=== PATIENT | female | born 2000 ===

== ENCOUNTER 2020-07-20 19:05 | Inpatient (IN) | payer OTHER ==
--- NOTE | 2020-07-20 21:03 | Ultrasound Report ---
ULTRASOUND OBSTETRIC LIMITED INDICATION / CLINICAL INFORMATION: ROM. Clinical Gestational Age (GA): 35 weeks 1 days COMPARISON: None available. FINDINGS: HEART RATE (beats per minute): 153 PRESENTATION: Cephalic. ADDITIONAL FINDINGS: None. IMPRESSION: 1. Cephalic presentation. Signer Name: Tommie Borges MD Signed: 07/20/2020 8:59 PM Workstation Name: [id number]
[2020-07-20] MEDS ORDERED: AMPICILLIN/NS 2 GM/100 ML 2 GM/100 ML BAG IV ONE ×2 (21:06→21:15)
[2020-07-20] MEDS ORDERED: LACTATED RINGERS 1,000 ML ONE (21:15)
[2020-07-20] MEDS ORDERED: BETAMET ACET/BETAMET NA PH 6 MG/ML INJ 5 ML MDV IM ONE (21:15)
[2020-07-20] MEDS: BETAMET ACET/BETAMET NA PH 6 MG/ML INJ 5 ML MDV IM SCH (21:52)
[2020-07-20 21:58] LABS: Basophils # (Auto) 0.1 K/mm3 (0.0-0.1); Basophils % (Auto) 0.4 % (0.0-1.8); Eosinophils % (Auto) 0.3 % (0.0-4.3); Hematocrit 32.9 % (30.3-42.9); Hemoglobin 11.1 gm/dl (10.1-14.3); Lymphocytes # (Auto) 2.3 K/mm3 (1.2-5.4); Lymphocytes % (Auto) 19.7 % (13.4-35.0); Mean Corpuscular HGB Conc 34 % (30-34); Mean Corpuscular Volume 93 fl (79-97); Monocytes # (Auto) 0.8 K/mm3 (0.0-0.8); Monocytes % (Auto) 6.6 % (0.0-7.3); Platelet Count 162 K/mm3 (140-440); Red Blood Count 3.55 M/mm3 (3.65-5.03)
[2020-07-20] MEDS ORDERED: OXYTOCIN DRIP 30,000 MILLIUNITS/500 ML BAG IV ONE (22:50)
[2020-07-20] MEDS: BUTORPHANOL 2 MG/1 ML INJ IV PRN (23:03)
--- NOTE | 2020-07-21 00:09 | History and Physical Report ---
History of Present Illness Date of examination: 07/20/20 Date of admission: 07/20/20 Chief complaint: Pt states her water broke at 2am on 07/19/20. She states she was seen at [facility] and was sent home. History of present illness: 20 y/o at 35.1 wks presents with c/o SROM since 2am on 07/19/20. Pt states she was seen at [facility] on 07/19/20 for same and was sent home. She states she initiated her pnc at [facility] and had an u neventful preg. PN records are not available. GBS is unknown. Pt was admitted for an induction after consulting with Dr Vieira. Past History Past Medical History: no pertinent history Past Surgical History: no surgical history - Obstetrical History Expected Date of Delivery: 08/23/20 Actual Gestation: 35 Week(s) 2 Day(s) : 1 Para: 0 Medications and Allergies Allergies Allergy/AdvReac Type Severity Reaction Status Date / Time No Known Allergies Allergy Unverified 07/20/20 19:42 Home Medications Medication Instructions Recorded Confirmed Last Taken Type Vitamin 1 tab PO QDAY 07/20/20 07/20/20 07/20/20 10:00 History Active Meds: Active Medications Betamethasone Acet/Betameth SodPhos (Celestone Soluspan) 12 mg IM Q24H DELICIA Stop: 07/21/20 21:06 Last Admin: 07/20/20 21:52 Dose: 12 mg Documented by: Butorphanol Tartrate (Stadol) 2 mg IV Q2H PRN PRN Reason: Labor Pain Last Admin: 07/20/20 23:03 Dose: 2 mg Documented by: Lactated Ringer's (Lactated Ringers) 1,000 mls @ 125 mls/hr IV DIRECT DELICIA Ampicillin Sodium (Ampicillin/Ns 1 Gm/50 Ml) 1 gm in 50 mls @ 100 mls/hr IV Q4HR DELICIA; Protocol Review of Systems All systems: negative Eyes: deferred Ears, nose, mouth and throat: deferred Breasts: normal - Vital Signs Vital signs: Vital Signs Temp 98.4 F 07/20/20 19:30 Temp Pulse Resp BP Pulse Ox 98.4 F 89 98 07/20/20 19:30 07/20/20 23:57 07/20/20 23:57 - Physical Exam Breasts: Positive: normal Cardiovascular: Regular rate Lungs: Positive: Clear to auscultation, Normal air movement Abdomen: Positive: normal appearance, soft, normal bowel sounds, other (gravid) Genitourinary (Female): Positive: normal external genitalia, normal perenium Vulva: both: normal Uterus: Positive: normal size, enlarged, normal contour, other (gravid) Adnexa: both: normal Anus/Rectum: Positive: normal perianal skin Extremities: Positive: normal - Obstetrical FHR: auscultation normal, category 1 Uterine Contraction Monitor Mode: External Cervical Dilatation: 1 (per nurse) Cervical Effacement Percentage: 30 (per nurse) station: -3 Uterine Contraction Pattern: Regular Uterine Tone Measurement Phase: Resting Uterine Contraction Intensity: Mild Results Result Diagrams: 07/20/20 20:34 Abnormal lab results 07/20/20 Range/Units 20:34 WBC 11.8 H (4.5-11.0) K/mm3 RBC 3.55 L (3.65-5.03) M/mm3 RDW 13.0 L (13.2-15.2) % Seg Neutrophils % 73.0 H (40.0-70.0) % Seg Neutrophils # 8.6 H (1.8-7.7) K/mm3 All other labs normal. Assessment and Plan A: IUP @ 35.1 wks PPROM on 07/19/20 @ 2am PTL, GBS unknown P: Admit to L&D Continuous monitoring Betamethasone Pain med/Epidural prn GBS prophylaxis per hosp protocal Expectant mtg POC agrees with plan - Patient Problems (1) 35 weeks gestation of Current Visit: Yes Status: Acute (2) premature rupture of membranes (PPROM) with onset of labor after 24 hours of rupture in third trimester, antepartum Current Visit: Yes Status: Acute
[2020-07-21] MEDS ORDERED: fentaNYL 100 MCG/2 ML INJ IV PRN (01:57)
[2020-07-21] MEDS ORDERED: LIDOCAINE (2%) 20 MG/1 ML VIAL 20 ML MDV INFILTRATI ONE (01:57)
[2020-07-21] MEDS ORDERED: MINERAL OIL 30 ML ORAL LIQD PO PRN (01:57)
[2020-07-21] MEDS ORDERED: TERBUTALINE 1 MG/1 ML INJ SUB-Q PRN (01:57)
[2020-07-21] MEDS ORDERED: OXYTOCIN DRIP 30 UNITS/500 ML BAG IV SCH ×2 (02:00→23:45)
[2020-07-21] MEDS: AMPICILLIN/NS 1 GM/50 ML 1 GM/50 ML BAG IV SCH ×4 (02:17→20:40)
[2020-07-21] MEDS: LACTATED RINGERS 1,000 ML IV SCH ×2 (08:46→20:40)
[2020-07-21] MEDS: BUTORPHANOL 2 MG/1 ML INJ IV PRN (08:53)
--- NOTE | 2020-07-21 10:37 | Progress Note ---
Assessment and Plan - Patient Problems (1) premature rupture of membranes (PPROM) with unknown onset of labor Current Visit: Yes Status: Acute Plan to address problem: Continue IV Abts Initiate Pitocin titration after second dose of steroids received Anticipate Subjective - Subjective Date of service: 07/21/20 Principal diagnosis: PPROM Interval history: See admission H & P Patient reports: loss of fluid, movement normal, contractions (irregular), no new complaints, no vaginal bleeding Objective - Vital Signs Vital Signs: Vital Signs - 12hr 07/20/20 07/20/20 07/20/20 23:32 23:37 23:42 Temperature Pulse Rate 90 78 96 H Respiratory Rate Blood Pressure O2 Sat by Pulse 97 96 98 Oximetry 07/20/20 07/20/20 07/20/20 23:47 23:52 23:57 Temperature Pulse Rate 81 79 89 Respiratory Rate Blood Pressure O2 Sat by Pulse 98 98 98 Oximetry 07/21/20 07/21/20 07/21/20 00:02 00:07 00:12 Temperature Pulse Rate 78 84 96 H Respiratory Rate Blood Pressure O2 Sat by Pulse 98 99 99 Oximetry 07/21/20 07/21/20 07/21/20 00:17 00:22 00:27 Temperature Pulse Rate 92 H 84 83 Respiratory Rate Blood Pressure O2 Sat by Pulse 98 100 99 Oximetry 07/21/20 07/21/20 07/21/20 00:32 00:37 00:42 Temperature Pulse Rate 70 72 74 Respiratory Rate Blood Pressure O2 Sat by Pulse 97 97 97 Oximetry 07/21/20 07/21/20 07/21/20 00:49 00:54 00:59 Temperature Pulse Rate 77 70 77 Respiratory Rate Blood Pressure O2 Sat by Pulse 98 97 97 Oximetry 07/21/20 07/21/20 07/21/20 01:04 01:09 01:10 Temperature Pulse Rate 75 83 87 Respiratory Rate Blood Pressure O2 Sat by Pulse 98 96 88 Oximetry 07/21/20 07/21/20 07/21/20 01:14 01:19 01:24 Temperature Pulse Rate 78 78 82 Respiratory Rate Blood Pressure O2 Sat by Pulse 97 96 97 Oximetry 07/21/20 07/21/20 07/21/20 01:29 01:34 01:39 Temperature Pulse Rate 82 89 83 Respiratory Rate Blood Pressure O2 Sat by Pulse 96 97 98 Oximetry 07/21/20 07/21/20 07/21/20 01:44 01:49 01:54 Temperature Pulse Rate 81 90 84 Respiratory Rate Blood Pressure O2 Sat by Pulse 97 98 96 Oximetry 07/21/20 07/21/20 07/21/20 01:59 02:04 02:09 Temperature Pulse Rate 74 74 74 Respiratory Rate Blood Pressure O2 Sat by Pulse 96 97 97 Oximetry 07/21/20 07/21/20 07/21/20 02:14 02:19 02:21 Temperature Pulse Rate 76 79 75 Respiratory Rate Blood Pressure 105/62 O2 Sat by Pulse 97 97 Oximetry 07/21/20 07/21/20 07/21/20 02:24 02:36 03:27 Temperature 99.4 F Pulse Rate 81 72 Respiratory Rate Blood Pressure 110/64 O2 Sat by Pulse 97 Oximetry 07/21/20 07/21/20 07/21/20 04:25 04:30 04:35 Temperature Pulse Rate 77 74 73 Respiratory Rate Blood Pressure O2 Sat by Pulse 98 98 98 Oximetry 07/21/20 07/21/20 07/21/20 04:40 04:45 04:50 Temperature Pulse Rate 78 81 86 Respiratory Rate Blood Pressure O2 Sat by Pulse 97 98 97 Oximetry 07/21/20 07/21/20 07/21/20 04:55 05:00 05:05 Temperature Pulse Rate 74 72 92 H Respiratory Rate Blood Pressure O2 Sat by Pulse 97 97 97 Oximetry 07/21/20 07/21/20 07/21/20 05:10 05:15 05:20 Temperature Pulse Rate 74 83 81 Respiratory Rate Blood Pressure O2 Sat by Pulse 97 97 98 Oximetry 07/21/20 07/21/20 07/21/20 05:22 05:25 05:30 Temperature 99.4 F Pulse Rate 72 74 Respiratory Rate Blood Pressure O2 Sat by Pulse 98 98 Oximetry 07/21/20 07/21/20 07/21/20 05:35 05:40 05:45 Temperature Pulse Rate 76 66 77 Respiratory Rate Blood Pressure O2 Sat by Pulse 97 97 97 Oximetry 07/21/20 07/21/20 07/21/20 05:50 05:55 06:00 Temperature Pulse Rate 66 78 69 Respiratory Rate Blood Pressure O2 Sat by Pulse 97 97 97 Oximetry 07/21/20 07/21/20 07/21/20 06:05 06:14 06:19 Temperature Pulse Rate 81 69 68 Respiratory Rate Blood Pressure O2 Sat by Pulse 98 97 97 Oximetry 07/21/20 07/21/20 07/21/20 06:24 06:29 06:34 Temperature Pulse Rate 90 71 77 Respiratory Rate Blood Pressure O2 Sat by Pulse 98 97 97 Oximetry 07/21/20 07/21/20 07/21/20 06:39 06:45 06:50 Temperature Pulse Rate 70 76 Respiratory Rate Blood Pressure O2 Sat by Pulse 97 100 97 Oximetry 07/21/20 07/21/20 07/21/20 06:55 07:00 07:08 Temperature Pulse Rate 75 78 Respiratory Rate Blood Pressure O2 Sat by Pulse 97 97 99 Oximetry 07/21/20 07/21/20 07/21/20 07:13 07:18 07:23 Temperature Pulse Rate 71 83 67 Respiratory Rate Blood Pressure O2 Sat by Pulse 98 97 97 Oximetry 07/21/20 07/21/20 07/21/20 07:28 07:33 07:38 Temperature Pulse Rate 72 74 81 Respiratory Rate Blood Pressure O2 Sat by Pulse 98 98 98 Oximetry 07/21/20 07/21/20 07/21/20 07:43 07:48 07:53 Temperature Pulse Rate 76 81 80 Respiratory Rate Blood Pressure O2 Sat by Pulse 97 95 95 Oximetry 07/21/20 07/21/20 07/21/20 07:58 08:03 08:08 Temperature Pulse Rate 75 85 94 H Respiratory Rate Blood Pressure O2 Sat by Pulse 97 96 97 Oximetry 07/21/20 07/21/20 07/21/20 08:13 08:18 08:23 Temperature Pulse Rate 89 86 70 Respiratory Rate Blood Pressure O2 Sat by Pulse 96 98 97 Oximetry 07/21/20 07/21/20 07/21/20 08:28 08:34 08:46 Temperature Pulse Rate 81 74 63 Respiratory Rate Blood Pressure 126/70 O2 Sat by Pulse 98 98 Oximetry 07/21/20 07/21/20 07/21/20 08:59 09:08 09:13 Temperature 98.0 F Pulse Rate 78 104 H Respiratory 17 Rate Blood Pressure O2 Sat by Pulse 96 97 Oximetry 07/21/20 07/21/20 07/21/20 09:18 09:23 09:28 Temperature Pulse Rate 66 78 69 Respiratory Rate Blood Pressure O2 Sat by Pulse 97 98 98 Oximetry 07/21/20 07/21/20 07/21/20 09:33 09:38 09:43 Temperature Pulse Rate 73 68 67 Respiratory Rate Blood Pressure O2 Sat by Pulse 97 98 98 Oximetry 07/21/20 07/21/20 07/21/20 09:48 09:53 09:58 Temperature Pulse Rate 71 68 69 Respiratory Rate Blood Pressure O2 Sat by Pulse 98 97 97 Oximetry 07/21/20 07/21/20 07/21/20 10:03 10:08 10:13 Temperature Pulse Rate 74 71 75 Respiratory Rate Blood Pressure O2 Sat by Pulse 98 98 98 Oximetry 07/21/20 07/21/20 07/21/20 10:18 10:23 10:28 Temperature Pulse Rate 91 H 76 79 Respiratory Rate Blood Pressure O2 Sat by Pulse 99 99 99 Oximetry - Exam Breasts: deferred Cardiovascular: Regular rate Lungs: Normal air movement Uterus: Present: other (enlarged, S=D) FHR: category 1 Uterine Contraction Monitor Mode: External Uterine Contraction Frequency (min): 3-5 Uterine Contraction Pattern: Irregular Uterine Tone Measurement Phase: Resting Uterine Contraction Intensity: Mild - Labs Labs: Abnormal Labs 07/20/20 20:34 WBC 11.8 H RBC 3.55 L RDW 13.0 L Seg Neutrophils % 73.0 H Seg Neutrophils # 8.6 H Laboratory Results - last 24 hr 07/20/20 07/20/20 07/20/20 20:34 20:34 20:34 WBC 11.8 H RBC 3.55 L Hgb 11.1 Hct 32.9 MCV 93 MCH 31 MCHC 34 RDW 13.0 L Plt Count 162 Lymph % (Auto) 19.7 Barren % (Auto) 6.6 Eos % (Auto) 0.3 Baso % (Auto) 0.4 Lymph # (Auto) 2.3 Barren # (Auto) 0.8 Eos # (Auto) 0.0 Baso # (Auto) 0.1 Seg Neutrophils % 73.0 H Seg Neutrophils # 8.6 H Syphilis IgG Antibody Hep Bs Antigen Non-reactive HIV 1&2 Antibody Rapid HIV P24 Antigen Blood Type AB POSITIVE Antibody Screen Negative 07/20/20 07/20/20 20:34 20:34 WBC RBC Hgb Hct MCV MCH MCHC RDW Plt Count Lymph % (Auto) Barren % (Auto) Eos % (Auto) Baso % (Auto) Lymph # (Auto) Barren # (Auto) Eos # (Auto) Baso # (Auto) Seg Neutrophils % Seg Neutrophils # Syphilis IgG Antibody Nonreactive Hep Bs Antigen HIV 1&2 Antibody Rapid Non react HIV P24 Antigen Non react Blood Type Antibody Screen
[2020-07-21] MEDS: BETAMET ACET/BETAMET NA PH 6 MG/ML INJ 5 ML MDV IM SCH (21:54)
--- NOTE | 2020-07-21 23:33 | Ultrasound Report ---
ULTRASOUND OBSTETRIC LIMITED ULTRASOUND BIOPHYSICAL PROFILE INDICATION / CLINICAL INFORMATION: KIN, EFW, EGA. COMPARISON: None available. FINDINGS: BREATHING MOVEMENT = 2 GROSS BODY MOVEMENT = 2 TONE = 2 QUALITATIVE AMNIOTIC FLUID VOLUME = 2 TOTAL BIOPHYSICAL SCORE = 8/8 HEART RATE (beats per minute): 146 AMNIOTIC FLUID INDEX (cm) = 13.1 (normal = 7-24 cm) PRESENTATION: Cephalic. ADDITIONAL FINDINGS: Estimated weight of 24 53 g. Sonographic age of 34 weeks and 6 days. IMPRESSION: 1. Biophysical Score = 8/8 2. Amniotic fluid index measures 13.6 cm. 3. Estimated weight of 2453 g. 4. Sonographic age of 34 weeks and 6 days. Signer Name: Gamaliel Ryder MD Signed: 07/21/2020 11:28 PM Workstation Name: [id number]
--- NOTE | 2020-07-22 00:04 | Event Note ---
Date: 07/22/20 Assumed care of patient at 5:30 PM, co-managing with MD. Pt. has received course of steroids for FLM. SSE: + pooling, + fern. BPP 06/03. EDC 08/26 by US. 35 weeks gestation[address] with Dr. Parry re: patient. Dr. Parry states OK to start Pitocin to augment labor. Will continue Ampicillin.
[2020-07-22] MEDS: AMPICILLIN/NS 1 GM/50 ML 1 GM/50 ML BAG IV SCH ×4 (00:44→14:47)
[2020-07-22] MEDS: BUTORPHANOL 2 MG/1 ML INJ IV PRN (02:47)
[2020-07-22] MEDS: LACTATED RINGERS 1,000 ML IV SCH ×3 (06:18→14:47)
--- NOTE | 2020-07-22 08:01 | Event Note ---
Date: 07/22/20 E 2.5/80/0.
[2020-07-22] MEDS ORDERED: ONDANSETRON 4 MG/2 ML INJ IV PRN (08:28)
[2020-07-22] MEDS ORDERED: diphenhydrAMINE 50 MG/ML VIAL IV PRN (08:28)
[2020-07-22] MEDS ORDERED: NALOXONE 2 MG/2 ML INJ IV PRN (08:28)
[2020-07-22] MEDS ORDERED: NalbUPHINE 10 MG/1 ML INJ IV PRN (08:28)
[2020-07-22] MEDS ORDERED: DEXMEDETOMIDINE 200 MCG/2 ML VIAL IV ONE (08:34)
--- NOTE | 2020-07-22 08:46 | Anesthesia Consultation ---
Anesthesia Consult and Med Hx Date of service: 07/22/20 - Airway Anesthetic Teeth Evaluation: Good ROM Head & Neck: Adequate Mental/Hyoid Distance: Adequate Mallampati Class: Class II Intubation Access Assessment: Good - Pulmonary Exam CTA: Yes - Cardiac Exam Cardiac Exam: RRR - Pre-Operative Health Status ASA Pre-Surgery Classification: ASA2 Proposed Anesthetic Plan: Epidural - Pulmonary Hx Smoking: No Hx Asthma: No COPD: No Hx Pneumonia: No Hx Sleep Apnea: No - Cardiovascular System Hx Hypertension: No - Central Nervous System Hx Seizures: No Hx Psychiatric Problems: No - Gastrointestinal Hx Gastroesophageal Reflux Disease: No - Endocrine Hx Renal Disease: No Hx End Stage Renal Disease: No Hx Hypothyroidism: No Hx Hyperthyroidism: No - Hematic Hx Anemia: No Hx Sickle Cell Disease: No
[2020-07-22] MEDS: ePHEDrine SULFATE 50 MG/1 ML INJ IV PRN ×2 (08:47→08:59)
--- NOTE | 2020-07-22 08:47 | Progress Note ---
Labor Epidural - Labor Epidural Start Time: 08:33 Stop Time: 08:45 Performed by:: JUAN MEADOWS () Procedure: Patient is requesting a laboring epidural for laboring pain. Patient IDed, H&P reviewed, all questions and concerns were answered, and consent was signed. Timeout was performed at bedside. Patient in sitting position. Sterile prep and drape was performed. 3ml of 1% lidocaine skin wheal at L[3]- L [4]. 18- gauge Touhy epidural needle was advanced to loss of resistance with air technique. Negative CSF negative blood. Epidural catheter advanced to [12] centimeters. [-] Aspiration [-] test dose. Sterile dressing applied. Patient tolerated procedure.
[2020-07-22] MEDS ORDERED: fentaNYL-BUPIV 2 MCG/ML-0.125% 200 MCG/100 ML BAG EPIDURAL SCH (09:00)
--- NOTE | 2020-07-22 16:12 | Event Note ---
Date: 07/22/20 SV /0.
[2020-07-22] MEDS ORDERED: LIDOCAINE (2%) 20 MG/1 ML VIAL 20 ML MDV INFILTRATI ONE (19:04)
[2020-07-22] MEDS: OXYTOCIN 20 UNIT/1000ML DRIP 20 UNITS/1,000 ML BAG IV SCH ×2 (19:07→20:11)
--- NOTE | 2020-07-22 19:41 | Procedure Note ---
OB Delivery Note - Delivery Date of Delivery: 07/22/20 Surgeon: KASSIE JAIMES Estimated blood loss: 200cc - Vaginal Delivery presentation: vertex Delivery position: OP Intrapartum events: labor-<37 weeks, meconium Delivery augmentation: pitocin Delivery monitor: external FHT, external uterine Route of delivery: Delivery placenta: spontaneous Delivery cord: 3 umbilical vessels Episiotomy: none Delivery laceration: 1st degree Delivery repair: vicryl Anesthesia: epidural Delivery comments: Spontaneous vaginal delivery at 19:03 of liveborn female weighing 5 lb. 7 oz. with apgars of 8/9. Epidural anesthesia. Meconium stained amniotic fluid. NICU present for delivery. Baby delivered OP position gently and easily and was placed skin to skin with mom immediately after delivery. Baby was bulb suctioned. Vigorous at , spontaneous cry and respirations. 3 vessel cord double clamped and cut and baby taken to radiant warmer to be evaluated by NICU team. Spontaneous delivery of intact placenta and membranes by diaz mechanism. EBL 200 cc. Pitocin to IV fluids after delivery of placenta. Fundus firm and midline. Small first degree laceration repaired with 3-0 vicryl. Vaginal sweep negative. Sponge and instrument counts correct. Mother and baby stable.
[2020-07-22] MEDS ORDERED: WITCH HAZEL/ GLYCERIN PAD TP PRN (19:46)
[2020-07-22] MEDS ORDERED: MAGNESIUM HYDROXIDE (MOM) ORAL LIQD UDC PO PRN (19:46)
[2020-07-22] MEDS ORDERED: LANOLIN/ZINC/DIMETHICONE (LANSINOH) 7 GM TP PRN (19:46)
[2020-07-22] MEDS ORDERED: HYDROcodone/ACETAMINOPHEN 5-325 MG TAB PO PRN (19:55)
[2020-07-22] MEDS: IBUPROFEN 600 MG TAB PO SCH (22:14)
[2020-07-22] MEDS: DOCUSATE SODIUM 100 MG CAP PO SCH (22:15)
[2020-07-23 09:20] LABS: Hematocrit 30.3 % (30.3-42.9); Hemoglobin 10.2 gm/dl (10.1-14.3)
[2020-07-23] MEDS: DOCUSATE SODIUM 100 MG CAP PO SCH (10:26)
--- NOTE | 2020-07-23 10:27 | Progress Note ---
Assessment and Plan A: day 1 S/P . Anemia. P: Supplement with oral iron. Subjective - Subjective Date of service: 07/23/20 Principal diagnosis: day 1 S/P Patient reports: appetite normal, voiding normally, pain well controlled, flatus, ambulating normally, no dizzy ambulation, no nauseated : in NICU Objective - Vital Signs Latest vital signs: Vital Signs Temp Pulse Resp Resp BP BP Pulse Ox 07/23/20 08:20 98.1 F 89 18 98/61 96 07/23/20 05:13 97.9 F 74 20 100/56 95 07/23/20 00:51 98.7 F 69 20 119/70 99 07/22/20 22:14 20 07/22/20 21:20 99.9 F H 91 H 20 20 133/79 99 07/22/20 19:34 99.2 F 101 H 18 118/67 118/67 07/22/20 18:56 168 H 88 07/22/20 18:55 150 H 91 07/22/20 18:50 152 H 98 07/22/20 18:49 82 87 07/22/20 18:45 151 H 98 07/22/20 18:40 125 H 99 07/22/20 18:35 122 H 100 07/22/20 18:30 98.4 F 101 H 99 07/22/20 18:18 82 110/58 07/22/20 18:07 93 H 99 07/22/20 18:02 88 98 07/22/20 17:57 90 98 07/22/20 17:52 88 98 07/22/20 17:47 90 99 07/22/20 17:42 86 98 07/22/20 17:37 92 H 97 07/22/20 17:32 92 H 97 07/22/20 17:27 84 97 07/22/20 17:22 87 96 07/22/20 17:19 88 105/58 07/22/20 17:17 88 97 07/22/20 17:12 90 96 07/22/20 17:07 88 98 07/22/20 17:02 82 99 07/22/20 16:57 93 H 98 07/22/20 16:52 84 98 07/22/20 16:47 88 99 07/22/20 16:42 90 98 07/22/20 16:37 79 99 07/22/20 16:32 97 H 99 07/22/20 16:27 82 99 07/22/20 16:22 77 99 07/22/20 16:19 78 105/56 07/22/20 16:17 85 97 07/22/20 16:12 79 98 07/22/20 16:07 81 97 07/22/20 16:02 95 H 97 07/22/20 16:00 98.8 F 07/22/20 15:57 84 98 07/22/20 15:52 84 97 07/22/20 15:47 89 96 07/22/20 15:42 83 97 07/22/20 15:37 85 98 07/22/20 15:32 89 98 07/22/20 15:27 103 H 98 07/22/20 15:22 98 H 98 07/22/20 15:18 86 97/50 07/22/20 15:17 88 97 07/22/20 15:12 86 97 07/22/20 15:07 98 H 97 07/22/20 15:02 91 H 97 07/22/20 14:57 89 97 07/22/20 14:52 89 97 07/22/20 14:47 90 96 07/22/20 14:42 86 97 07/22/20 14:37 87 97 07/22/20 14:36 85 94 07/22/20 14:32 77 97 07/22/20 14:27 75 97 07/22/20 14:22 71 97 07/22/20 14:18 75 98/50 07/22/20 14:17 71 97 07/22/20 14:12 101 H 98 07/22/20 14:07 71 97 07/22/20 14:02 73 97 07/22/20 13:57 77 97 07/22/20 13:52 75 97 07/22/20 13:47 76 97 07/22/20 13:42 73 97 07/22/20 13:37 75 97 07/22/20 13:32 72 97 07/22/20 13:27 76 97 07/22/20 13:22 73 97 07/22/20 13:19 72 97/54 07/22/20 13:17 74 97 07/22/20 13:12 73 98 07/22/20 13:07 76 97 07/22/20 13:02 74 98 07/22/20 12:57 73 98 07/22/20 12:52 74 97 07/22/20 12:47 72 98 07/22/20 12:42 72 98 07/22/20 12:37 78 98 07/22/20 12:32 72 99 07/22/20 12:27 76 98 07/22/20 12:22 75 99 07/22/20 12:18 78 86/48 07/22/20 12:17 83 98 07/22/20 12:12 90 98 07/22/20 12:07 82 98 07/22/20 12:02 89 98 07/22/20 12:00 98.1 F 07/22/20 11:57 78 98 07/22/20 11:52 80 97 07/22/20 11:47 80 98 07/22/20 11:42 82 99 07/22/20 11:37 81 98 07/22/20 11:32 78 99 07/22/20 11:27 71 99 07/22/20 11:22 75 99 07/22/20 11:20 71 107/58 07/22/20 11:17 75 100 07/22/20 11:12 69 100 07/22/20 11:07 68 100 07/22/20 11:02 73 100 07/22/20 10:57 67 100 07/22/20 10:52 68 100 07/22/20 10:47 72 99 07/22/20 10:42 76 97 07/22/20 10:37 63 97 07/22/20 10:32 65 96 07/22/20 10:27 77 97 Intake and Output 07/22/20 07/23/20 07/23/20 23:59 07:59 15:59 Intake Total 133.333 Output Total 800 Balance -666.667 Intake: IV 133.333 PITOCin/NS 20 UNIT/1000ML 133.333 DRIP 20 units In 1,000 ml @ 125 mls/hr IV DIRECT DELICIA Rx#:[id number] Output: Urine 800 Indwelling Catheter 800 Other: Total, Output Amount 800 # Voids Void 1 Estimated Blood Loss 200 - Exam Cardiovascular: Present: Regular rate, Normal S1, Normal S2, No murmurs Lungs: Present: Clear to auscultation Abdomen: Present: normal appearance, soft, normal bowel sounds. Absent: distention, tenderness, guarding, rigidity Uterus: Present: normal, firm, fundal height below umbilicus. Absent: bogginess, tenderness Extremities: Present: normal. Absent: tenderness, edema
--- NOTE | 2020-07-23 12:12 | Discharge Summary ---
Providers - Providers Date of Admission: 07/21/20 01:57 Date of discharge: 07/23/20 Attending physician: OLEKSANDR CERON JR, MD Case management Primary care physician: OLEKSANDR CERON JR, MD Hospitalization Reason for admission: IUP - , rupture of membranes Delivery: Episiotomy: none Laceration: none Other procedures: none complications: none Discharge diagnosis: delivery baby: female Pertinent studies: Labs, ultrasound Hospital course: Stable hospital course. Condition at discharge: Good Disposition: DC-01 TO HOME OR SELFCARE - Discharge Diagnoses (1) delivery Status: Acute (2) Anemia Status: Acute Plan - Provider Discharge Summary Activity: routine, no sex for 6 weeks, no heavy lifting 4 weeks, no strenuous exercise Diet: routine Instructions: routine Additional instructions: Continue taking your vitamins and iron supplements at home. Follow up at [facility] in 1 week. Call your doctor immediately for: * Fever > 100.5 * Heavy vaginal bleeding ( >1 pad per hour) * Severe persistent headache * Shortness of breath * Reddened, hot, painful area to leg or breast - Follow up plan Follow up: OLEKSANDR CERON JR, MD [Primary Care Provider] - 7 Days
[2020-07-23] MEDS: IBUPROFEN 600 MG TAB PO SCH (12:18)
--- NOTE | 2020-07-23 13:20 | Post Anesthesia Evaluation ---
- Post Anesthesia Evaluation Patient Participated: Yes Airway Patent: Yes Stable Respiratory Function: Yes Nausea/Vomiting: No Temp > 96.8F: Yes Pain Manageable: Yes Adequeate Hydration: Yes Anesthesia Complications: No Block Receding Appropriately: Yes Patient on Ventilator: No
[2020-07-23 13:29] VITALS: BP 103/61
[2020-07-24] MEDS ORDERED: FERROUS SULFATE 325 MG TAB PO SCH (10:00)
== END 2020-07-23 14:00 | disposition home or self-care (01) | DRG 807 ==
LOC: TRG 19:05 → APU 19:18 → LD 21:46 → TRG 07-21 01:57 → OB 07-22 21:52
PROVIDERS: ADMIT Obstetrics & Gynecology; ATTEND Obstetrics & Gynecology
PROC: 10E0XZZ Delivery of Products of Conception, External Approach (ICD-10-PCS; principal; 2020-07-22)
PROC: 0HQ9XZZ Repair Perineum Skin, External Approach (ICD-10-PCS; 2020-07-22)
PROC: 3E0R3BZ Introduction of Anesthetic Agent into Spinal Canal, Percutaneous Approach (ICD-10-PCS; 2020-07-22)
PROC: 00HU33Z Insertion of Infusion Device into Spinal Canal, Percutaneous Approach (ICD-10-PCS; 2020-07-22)
DX: O77.0 Labor and delivery complicated by meconium in amniotic fluid (principal); Z37.0 Single live birth; O99.02 Anemia complicating childbirth; O70.0 First degree perineal laceration during delivery; O42.913 Preterm premature rupture of membranes, unspecified as to length of time between rupture and onset of labor, third trimester; Z3A.35 35 weeks gestation of pregnancy; Z03.818 Encounter for observation for suspected exposure to other biological agents ruled out
CPT/HCPCS: 36415; 76815; 76816; 76819; 85014; 85018; 85025; 86592; 86706; 86762; 86850; 86900; 86901; 87806; G0378; J0290; J0595; J0702; J2590; J3010; J3490; J7120; U0003-CS